=== PATIENT | male | born 1930 | race Caucasian/White ===

== ENCOUNTER 2017-04-21 19:17 | Emergency (ER) | payer MEDICARE ==
--- NOTE | 2017-04-21 20:28 | CT ---
CT OF THE BRAIN WITHOUT CONTRAST: Indication: Fall IMPRESSION: No acute intracranial abnormality. COMMENTS: No comparisons are available. There is generalized cerebral and cerebellar atrophy. There is mild chronic small vessel ischemic ch checo. Septum pellucidum and third ventricle are midline. The mastoid air cells and paranasal sinuses are clear. The skull is intact. POS: [facility]
[2017-04-21 20:50] LABS: Hematocrit 41.3 % (42.0-52.0); Red Blood Cell (RBC) Count 4.01 mill/uL (4.70-6.10); White Blood Cell (WBC) Count 6.5 thou/uL (4.8-10.8)
[2017-04-21 20:57] LABS: #Eosinphils 0.1 thou/uL (0.0-0.7); #Lymphocytes 0.9 thou/uL (1.20-3.40); #Monocytes 0.6 thou/uL (0.11-0.59); #Neutrophils 4.9 thou/uL (1.40-6.50); %Basophils 0.2 % (0.0-1.0); %Eosinophils 1.5 % (0.0-10.0); %Lymphocytes 13.6 % (21.0-51.0); Mean Platelet Volume 8.4 fL (7.4-10.4)
--- NOTE | 2017-04-21 20:59 | RAD ---
TWO VIEWS RIGHT HIP: Indication: Fall with right hip pain. IMPRESSION: No acute osseous abnormality. COMMENTS: No comparison available. 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 There is moderate degenerative change involving the SI joints. POS: [facility]
[2017-04-21 21:00] LABS: ALT (SGPT) 21 U/L (8-55); AST (SGOT) 21 U/L (5-34); Alkaline Phosphatase 68 U/L (40-150); Anion Gap 11 mmol/L (10-20); BUN (Urea Nitrogen) 31 mg/dL (8.4-25.7); CK (CPK) 292 U/L (30-200); Calc. Creatinine Clearance 0 mL/min (70-130); Carbon Dioxide 32 mmol/L (23-31); Chloride 101 mmol/L (98-107); Estimated GFR-MDRD 45; Globulin 2.6 g/dL (2.4-3.5); Protein, Total 6.2 g/dL (5.8-8.1)
--- NOTE | 2017-04-21 21:01 | CT ---
NONCONTRAST CT CERVICAL SPINE: History: Unwitnessed fall with neck pain. Comparison: None. FINDINGS: No acute fracture or subluxation is evident. 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 There is ankylosis of the facet complexes at C3 and C4. 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 Lung apices are clear. Bony hemangioma is seen within the T2 vertebr a. IMPRESSION: No acute osseous abnormality. POS: [facility]
--- NOTE | 2017-04-21 21:02 | RAD ---
AP PELVIS: Indication: Fall. IMPRESSION: No definite acute osseous abnormality. COMMENTS: The patient is slightly rotated to the right limiting the exam. There is scattered degene rative change involving both hips and SI joints. There is extensive post-surgical change involving t he lumbar spine. POS: [facility]
[2017-04-21 21:03] LABS: Troponin I 0.025 ng/mL (< 0.028)
--- NOTE | 2017-04-21 21:03 | RAD ---
AP CHEST: Indication: Chest pain after fall. IMPRESSION: Low lung volumes. No definite acute abnormality. COMMENTS: No comparisons are available. No airspace consolidation, pleural effusion, or pneumothorax is eviden t. 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 POS: [facility]
[2017-04-21 21:51] LABS: Bilirubin Negative (Negative); Blood, Urine Negative (Negative); Glucose, Urine (Dipstick) Negative (Negative); Ketone, Urine Negative (Negative); Nitrite Negative (Negative); Protein, Urine (Dipstick) Negative (Neg-Trace)
--- NOTE | 2017-04-26 18:26 | EKG ---
Test Reason : Blood Pressure : / mmHG Vent. Rate : 072 BPM Atrial Rate : 267 BPM P-R Int : 000 ms QRS Dur : 086 ms QT Int : 382 ms P-R-T Axes : 000 001 -10 degrees QTc Int : 418 ms Atrial fibrillation Septal infarct , age undetermined - Q V1, V2 Abnormal ECG Confirmed by ADDY Carrillo, HAI Dacosta ([id number]), photo editor RACHID ART ([id number]) on 04/26/2017 6:25:44 PM Referred By: Confirmed By:HAI DALY M.D.
== END 2017-04-21 22:55 | disposition home or self-care (01) ==
LOC: ERS 19:17
DX: S70.01XA Contusion of right hip, initial encounter (principal); I10 Essential (primary) hypertension; E78.5 Hyperlipidemia, unspecified; F03.90 Unspecified dementia, unspecified severity, without behavioral disturbance, psychotic disturbance, mood disturbance, and anxiety; K21.9 Gastro-esophageal reflux disease without esophagitis; N40.0 Benign prostatic hyperplasia without lower urinary tract symptoms; F32.9 Major depressive disorder, single episode, unspecified; Z79.82 Long term (current) use of aspirin; Z79.1 Long term (current) use of non-steroidal anti-inflammatories (NSAID); Z79.899 Other long term (current) drug therapy; W19.XXXA Unspecified fall, initial encounter
CPT/HCPCS: 36415; 51701; 70450; 71010; 72125; 72170; 80053; 81003; 82550; 82553; 84484; 85025; 93005; 96360